=== PATIENT | male | born 1980 | race Caucasian/White ===

== ENCOUNTER → 2018-08-21 | Outpatient (CLI) | payer OTHER ==
[~2018-08-21] MED LIST: IOHEXOL 240 MG/ML 50ML VIAL. ONE; IOHEXOL 240 MG/ML 50ML VIAL. PO ONE; IOHEXOL 300 MG/ML 75 ML VIAL. IV ONE
--- NOTE | 2018-08-21 12:53 | RAD ---
Examination: CT of the abdomen pelvis with oral contrast and IV contrast HISTORY: History of nausea, vomiting, intermittent abdominal pain COMPARISON: None available TECHNIQUE: Axial CT images of the abdomen pelvis were performed with oral and IV contrast. Coronal and sagittal reformats are performed. Exposure: One or more of the following individualized dose reduction techniques were utilized for this examination: 1. Automated exposure control 2. Adjustment of the mA and/or kV according to patient size 3. Use of iterative reconstruction technique FINDINGS: 5 mm pulmonary nodule identified in the right lower lobe of the lung. No evidence of pleural effusion or pneumothorax. No evidence of free air identified in the abdomen. The visualized liver, spleen, adrenals grossly appears unremarkable. Small hiatal hernia is identified. The stomach is mildly distended. The visualized pancreas grossly appears unremarkable. Mild distended small bowel loops partly in the proximal small bowel. The appendix is normal. Feces and gas noted in the colon. There is mild thickened appearance of the wall of the sigmoid colon probably due to nondistention or mild colitis. Urinary bladder is mildly distended. No evidence of intrarenal collecting system calculi or hydronephrosis. The caliber of the aorta grossly appears unremarkable. No evidence of lytic bony destructive lesion. IMPRESSION: 1. Minimal distended proximal small bowel loops, nonspecific could be mild ileus or minimal enteritis. 2. Mild thickened appearance of the wall of the sigmoid colon most likely due to nondistention or less likely colitis. 3. 5 mm nodule identified in the right lower lobe lung. Recommend follow-up CT chest per Fleischner Society guidelines in one year. 4. Small hiatal hernia. Electronically signed by: Garcia Houston MD (08/21/2018 12:50 PM) [facility]
== END | disposition home or self-care (01) ==
LOC: CT 10:33
PROVIDERS: ATTEND Registered Nurse
DX: K44.9 Diaphragmatic hernia without obstruction or gangrene (principal); N32.89 Other specified disorders of bladder; K31.89 Other diseases of stomach and duodenum; R91.1 Solitary pulmonary nodule; J45.909 Unspecified asthma, uncomplicated
CPT/HCPCS: 74177; Q9966; Q9967

== ENCOUNTER 2020-09-24 22:28 | Emergency (ER) | payer OTHER ==
[~2020-09-24] VITALS: Ht 177.8 cm; Wt 81.8 kg
[2020-09-24] MEDS ORDERED: KETOROLAC 30 MG/ML VIAL. IM ONE (22:45)
[2020-09-24] MEDS ORDERED: NEOMY/BACITR/POLYMYXIN OINT PACKET. TP ONE (22:45)
--- NOTE | 2020-09-24 22:57 | RAD ---
Exam: Right toes 3 views INDICATION: Toe pain/laceration TECHNIQUE: Frontal, lateral and oblique views of the right foot Comparisons: None FINDINGS: There is a obliquely oriented fracture to the distal phalanx of the first digit, minimally displaced. There is intra-articular extension. Soft tissues are unremarkable. IMPRESSION: Obliquely oriented fracture to the distal phalanx of the first digit, minimally displaced Electronically signed by: Omega Manzo MD (09/24/2020 10:54 PM) [facility]
[2020-09-24] MEDS ORDERED: DIPH,PERTUSS(ACELL),TET VAC/PF 0.5 ML SYRINGE. VAX IM ONE (23:00)
[2020-09-24] MEDS ORDERED: HYDR-2155 PO (23:25)
[2020-09-24] MEDS ORDERED: AMOX1TAB61 PO (23:25)
--- NOTE | 2020-09-24 23:26 | PHYS DOC ---
Past History Past Medical History: No Pertinent History Past Surgical History: Other Additional Past Surgical Histo: left clavicle Smoking: Non-smoker Alcohol Use: Occasionally Drug Use: None General Adult EDM: Chief Complaint: TOE PROBLEM HPI: HPI: 40-year-old male presents with left great toe pain and laceration around nail bed after wrestling with his daughter just prior to arrival. Patient reports pain with any pressure on toe. Reports bleeding has continued despite trying to hold pressure. Patient reports last tetanus booster greater than 5 years ago. Denies other injury. Rates his pain as 9 out of 10. Review of Systems: Review of Systems: Constitutional: Denies fever or chills Musculoskeletal: Reports left great toe pain and laceration Integument: Denies rash; reports laceration to base of left great toe nail Neurologic: Denies numbness Complete systems were reviewed and found to be within normal limits, except as documented in this note. Current Medications: Current Meds: Current Medications Medications (Trade) Dose Ordered Sig/Shelby Start Time Stop Time Status Last Admin Dose Admin Diphtheria/ Pertussis/Tetanus Vacc (ADACEL TDap SYRINGE) 0.5 ml ONCE ONCE 09/24/20 23:00 09/24/20 23:01 DC 09/24/20 23:13 0.5 ML Ketorolac Tromethamine (Toradol 30mg Vial) 30 mg 1X ONCE 09/24/20 22:45 09/24/20 22:59 DC 09/24/20 23:07 30 MG Neomycin/ Polymyxin/ Bacitracin (Triple Antibiotic Ointment) 1 pkt 1X ONCE 09/24/20 22:45 09/24/20 22:59 DC 09/24/20 23:10 1 PKT Allergies: Allergies: Allergies Coded Allergies Type Severity Reaction Last Updated Verified erythromycin base Allergy Unknown 08/21/18 Yes Physical Exam: PE: Constitutional: Well developed, well nourished, no acute distress, non-toxic appearance HENT: Normocephalic, atraumatic Eyes: Conjunctiva normal, no discharge Neck: Normal range of motion, supple Lungs & Thorax: No respiratory distress, equal chest rise and fall Skin: Warm, dry, no erythema, 5 cm laceration to dorsal aspect of left great toe along nail bed/cuticle Extremities: Left great toe tenderness to proximal phalanx, left DP and PT +2 Neurologic: Alert and oriented X 3, no focal deficits noted Psychologic: Affect normal, judgment normal Current Patient Data: Vital Signs: Vital Signs Date Time Temp Pulse Resp B/P (MAP) Pulse Ox O2 Delivery O2 Flow Rate FiO2 09/24/20 22:34 97.8 84 18 138/87 96 Room Air EKG: EKG: [] Radiology/Procedures: Radiology/Procedures: PROCEDURE: TOES RIGHT Exam: Right toes 3 views INDICATION: Toe pain/laceration TECHNIQUE: Frontal, lateral and oblique views of the right foot Comparisons: None FINDINGS: There is a obliquely oriented fracture to the distal phalanx of the first digit, minimally displaced. There is intra-articular extension. Soft tissues are unremarkable. IMPRESSION: Obliquely oriented fracture to the distal phalanx of the first digit, minimally displaced Electronically signed by: Omega Manzo MD (09/24/2020 10:54 PM) [facility] Heart Score: C/O Chest Pain: N/A Course & Med Decision Making: Course & Med Decision Making Pertinent Imaging studies reviewed. (See chart for details) Patient presents with injury to left great toe. Laceration to base of nail concern for possible fracture. Pain addressed. Tetanus updated. X-ray confirmed minimally displaced fracture to distal phalanx of left great toe. Empiric antibiotic provided given open fracture. Wound copiously irrigated after nerve block. Laceration repaired. Sterile dressing applied. Postop shoe placed and crutches provided. Patient stable for discharge with outpatient follow-up with PCP/podiatry. Podiatry referral provided. Discussed findings and plan with patient and significant other, who acknowledge understanding and agreement. Bita Disclaimer: Bita Disclaimer: This electronic medical record was generated, in whole or in part, using a voice recognition dictation system. Splinting Splinting : Location: Left foot Pre-Made Type: Postop shoe Pre-Proc Neuro Vasc Exam: normal Post-Proc Neuro Vasc Exam: normal, unchanged from pre-exam Laceration/Wound Repair Laceration/Wound Repair : Wound Location: lower extremity (Left great toe) Wound's Depth, Shape: linear Wound Length (cm): 4 Wound Explored: no foreign body removed Irrigated w/ Saline (ccs): 400 Betadine Prep?: Yes Anesthesia: Lidocaine w/ Epi (1%) Volume Anesthetic (ccs): 4 (Four nerve digital block) Wound Debrided: moderate Wound Repaired With: sutures Suture Size/Type: 4:0, nylon Number of Sutures: 7 Sterile Dressing Applied?: Yes Splint Applied?: Yes (Postop shoe) Progress Verbal consent obtained. Time out performed. Hand hygiene utilized. Base of left great toe cleaned with ChloraPrep. Anesthesia obtained via 4 nerve digital block with a 25-gauge hypodermic needle and (5) mL's of lidocaine 1% with epinephrine. Copious irrigation performed. Betadine utilized to wound. Wound well approximated with 4-0 Nylon simple interrupted sutures x 7 (4 to lateral aspect and 3 to medial aspect). Patient tolerated procedure well and without difficulty. Empiric antibiotic ointment applied prior to sterile dressing. Post op shoe applied for protection. Departure Departure: Impression: Primary Impression: Open toe fracture Qualified Codes: S92.421B - Displaced fracture of distal phalanx of right great toe, initial encounter for open fracture Disposition: HOME / SELF CARE / HOMELESS Condition: STABLE Referrals: LATASHA ROBERTS MD (PCP) DEBBIE MARSH DPM Patient Instructions: Crutch Use, [id number], Hard-Soled Shoe, Laceration Care, Adult, [id number], Toe Fracture, [id number] Additional Instructions: Do not soak your wound. You may shower. Clean wound daily with soap and water. Change dressing 2 times daily. Use over the counter antibiotic ointment with each dressing change. Sutures need to be removed in 7-10 days. Present to your family doctor or local urgent care for removal. You may also present to the ED but it will be an additional visit/charge. Follow with podiatry regarding fracture care. Scripts Hydrocodone Bit/Acetaminophen (HYDROCODONE-APAP 5-325 ) 1 Each Tablet 0.5-1 TAB PO PRN Q6HRS PRN for PAIN, #10 TAB 0 Refills Prov: ANNIE CHAPA DO 09/24/20 Amoxicillin/Potassium Clav (AUGMENTIN 875-125 TABLET) 1 Each Tablet 1 TAB PO BID for Open fracture for 7 Days, #14 TAB 0 Refills Prov: ANNIE CHAPA DO 09/24/20 ANNIE CHAPA DO Sep 24, 2020 23:26
[2020-09-24] MEDS ORDERED: HYDROcodone/APAP 5/325MG 1 TAB TABLET PO ONE (23:30)
[2020-09-24] MEDS ORDERED: LIDOCAINE 1%/EPI 1:100,000 20 ML VIAL. IJ ONE (23:30)
[2020-09-24] MEDS ORDERED: AMOXICILLIN/K CLAV 875/125MG TABLET. PO ONE (23:30)
[2020-09-25 00:40] VITALS: BP 128/72
== END 2020-09-25 00:50 | disposition home or self-care (01) ==
LOC: ER 22:28
DX: S92.421B Displaced fracture of distal phalanx of right great toe, initial encounter for open fracture (principal); Z88.1 Allergy status to other antibiotic agents; X58.XXXA Exposure to other specified factors, initial encounter; Y93.72 Activity, wrestling; Y92.89 Other specified places as the place of occurrence of the external cause; Y99.8 Other external cause status
CPT/HCPCS: 12002; 73660; 90471; 90715; 96372; 99284; J1885

== ENCOUNTER → 2020-10-31 | Outpatient (CLI) | payer OTHER ==
[~2020-10-31] MED LIST changes: +AMOX1TAB61 PO; +HYDR-2155 PO; -IOHEXOL 240 MG/ML 50ML VIAL. ONE; -IOHEXOL 240 MG/ML 50ML VIAL. PO ONE; -IOHEXOL 300 MG/ML 75 ML VIAL. IV ONE
--- NOTE | 2020-10-31 14:41 | RAD ---
3 views right foot 10/31/2020 1:03 PM Indication: Reason: STANDING FEET, TOE FRACTURE / Spl. Instructions: / History: Comparison: None] radiograph September 24, 2020 Findings: Redemonstration of a minimally displaced fracture involving the base of the first distal ph alanx with extension through the articular surface. No overt callus or bony bridging is identified on today's study. No dislocation is seen. No other fractures are seen. IMPRESSION: Grossly similar appearance of minimally displaced fracture involving the base of the firs t distal phalanx extending through the articular surface Electronically signed by: Cas Mariano MD (10/31/2020 2:38 PM) [id number]
== END ==
LOC: RAD 12:54
PROVIDERS: ATTEND Podiatrist
DX: S92.911A Unspecified fracture of right toe(s), initial encounter for closed fracture (principal); X58.XXXA Exposure to other specified factors, initial encounter; Y93.89 Activity, other specified; Y92.89 Other specified places as the place of occurrence of the external cause; Y99.8 Other external cause status
CPT/HCPCS: 73630

== ENCOUNTER → 2020-11-21 | Outpatient (CLI) | payer OTHER ==
--- NOTE | 2020-11-21 16:42 | RAD ---
EXAM: Right foot, 3 views HISTORY: Great toe pain. COMPARISON: None. FINDINGS: 3 views of the right foot are obtained. There is a displaced intra-articular fracture of th e first distal phalanx. There is degenerative subchondral sclerosis and subchondral cyst formation in volving the first metatarsal head. There is slight associated cortical irregularity involving the art icular aspect of the first metatarsal head which may be due to a small osteochondral lesion. IMPRESSION: 1. Mildly displaced first distal phalanx fracture. 2. Degenerative change involving the first metatarsal head with possible superimposed small osteochon dral lesion. Electronically signed by: Yudith Chadwick MD (11/21/2020 4:40 PM) [facility]
== END ==
LOC: RAD 13:16
PROVIDERS: ATTEND Podiatrist
DX: S92.421A Displaced fracture of distal phalanx of right great toe, initial encounter for closed fracture (principal); M19.071 Primary osteoarthritis, right ankle and foot; X58.XXXA Exposure to other specified factors, initial encounter; Y93.89 Activity, other specified; Y92.89 Other specified places as the place of occurrence of the external cause; Y99.8 Other external cause status
CPT/HCPCS: 73630